=== PATIENT | female | born 1990 | race Caucasian/White ===

== ENCOUNTER 2017-06-09 01:31 | Emergency (ER) | payer SELFPAY ==
--- NOTE | 2017-06-09 01:38 | Emergency Department Record ---
History of Present Illness - General Chief Complaint: Overdose Stated Complaint: OVERDOSE Time Seen by Provider: 06/09/17 01:32 Source: Family, Police Mode of Arrival: Wheelchair Limitations: Altered mental status - History of Present Illness Initial Comments: 27 yo female presents to ED following intentional overdose per family members. Family reports a history of depression, has been upset over the recent of her father. Patient ingested an unknown quantity of prescriptions medications, possible Xanax. Complaint: Intentional overdose Onset/Timin -: Minutes(s) - [place]hele Coma Scale Eye Response: (3) Open to voice Motor Response: (5) Localizes to pain Verbal Response: (4) Confused conversation [place] Total: 12 - Detail Intent: Suicide attempt Context: Intentional Overdose: Recent loss Treatments Prior to Arrival: None - Related Data Previous Rx's Medication Instructions Recorded Albuterol Sulfate [Proair Hfa] 2 puff IH QID PRN #1 inhaler 01/24/16 Benzonatate [Tessalon] 1 cap PO Q8H PRN #15 cap 01/24/16 Doxycycline Hyclate [Doxycycline] 100 mg PO BID #14 cap 01/24/16 Allergies Allergy/AdvReac Type Severity Reaction Status Date / Time No Known Drug Allergies Allergy Verified 01/24/16 12:12 Review of Systems ROS unobtainable: Due to mental status Past Medical History - SOCIAL HISTORY Smoking Status: Light tobacco smoker (<10/day) Drug Use: None - RESPIRATORY Hx Respiratory Disorders: No - CARDIOVASCULAR Hx Cardio Disorders: No - NEURO Hx Neuro Disorders: No - GI Hx GI Disorders: No - Hx Genitourinary Disorders: No - ENDOCRINE Hx Endocrine Disorders: No - MUSCULOSKELETAL Hx Musculoskeletal Disorders: Yes - PSYCH Hx Psych Problems: Yes Hx Anxiety: Yes Comment:: bipolar - HEMATOLOGY/ONCOLOGY Hx Hematology/Oncology Disorders: No Family Medical History Hx Alcohol Use: Father, Brother/Sister, Grandparents Hx Anxiety: Father, Mother, Brother/Sister, Grandparents Hx Cancer: Grandparents Hx Depression: Mother, Brother/Sister, Grandparents Hx Heart Disease: Grandparents Hx HTN: Grandparents Hx Kidney Disease: Grandparents Hx Stroke: Mother Physical Exam - General General Appearance: Other (Patient is initially unarousable, then becomes agitated on examination) Limitations: Altered mental status - Head Head exam: Atraumatic, Normocephalic, Normal inspection Head exam detail: negative: Abrasion, Contusion, Pacheco's sign, General tenderness, Hematoma, Laceration - Eye Eye exam: Normal appearance. negative: Conjunctival injection, Periorbital swelling, Periorbital tenderness, Scleral icterus - ENT Ear exam: negative: Auricular hematoma, Auricular trauma Nasal Exam: negative: Active bleeding, Discharge, Foreign body Mouth exam: negative: Drooling, Laceration, Tongue elevation - Neck Neck exam: Normal inspection. negative: Meningismus, Tenderness - Respiratory Respiratory exam: Normal lung sounds bilaterally. negative: Rales, Respiratory distress, Rhonchi, Stridor - Cardiovascular Cardiovascular Exam: Normal rhythm, Normal heart sounds, Tachycardia - GI/Abdominal GI/Abdominal exam: Soft. negative: Rebound, Rigid, Tenderness - Rectal Rectal exam: Deferred - exam: Deferred - Extremities Extremities exam: negative: Pedal edema, Tenderness - Neurological Neurological exam: Altered, Other (Intermittently agitated, altered on examination) - Psychiatric Psychiatric exam: Agitated - Skin Skin exam: Normal color. negative: Abrasion Type of lesion: negative: abrasion Course - Reevaluation(s) Reevaluation #1: 06/09/17 01:39 EKG: Sinus tachycardia 108 Normal axis, normal intervals No acute ST-T wave changes Patient seen and examined, is currently protecting her airway with intermittent agitation, calms when males are out of the room. Will monitor closely for worsening mental status/airway compromise. Reevaluation #2: 06/09/17 02:06 Patient reassessed, she is talking quietly with SO, maintaining her airway at this time. Awaiting laboratory results to initiate transfer. Reevaluation #3: 06/09/17 02:24 Labs reviewed, Alcohol 0.142, labs are otherwise grossly unremarkable for an acute process. [facility] 1-call contacted for transfer to SDU. Reevaluation #4: 06/09/17 02:37 Case was discussed with Dr. Pimentel, will accept transfer for admission and medical clearance Medical Decision Making - Lab Data Result diagrams: 06/09/17 01:38 06/09/17 01:38 Disposition Disposition: Transfer Clinical Impression: Intentional drug overdose Qualifiers: Encounter type: initial encounter Qualified Code(s): T50.902A - Poisoning by unspecified drugs, medicaments and biological substances, intentional self-harm , initial encounter Disposition: Acute Care Hospital Transfer Transfer To: [facility] Reason For Transfer: SDU for medical clearance Accepting Physician: Loren Time Discussed w/Accepting Physician: :38 Condition: (3) Guarded Forms: Patient Portal Access Time of Disposition: :38 Quality - Quality Measures Quality Measures: N/A - Blood Pressure Screening Does Patient Have Any of the Following: No Blood Pressure Classification: Pre-Hypertensive BP Reading Systolic Measurement: 134 Diastolic Measurement: 84 Screening for High Blood Pressure: < Pre-Hypertensive BP, F/U Documented > [ G8950] Pre-Hypertensive Follow-up Interventions: Referral to alternative/primary care provider.
[2017-06-09 01:43] LABS: BASO % 0.7 % (0-6); EOS % 0.8 % (0-6); GRAN % 56.4 % (47-80); HEMATOCRIT 42.9 % (35.0-47.0); HEMOGLOBIN 14.1 gm/dl (11.6-16.0); LYMPH % 34.1 % (16-45); MEAN CELL VOLUME 90.5 fl (81-97); MEAN CORPUSCULAR HEMOGLOBIN 29.7 pg (27-33); MEAN CORPUSCULAR HGB CONC 32.9 g/dl (32-36); MEAN PLATELET VOLUME 9.7 fl (7.4-10.4); PLATELET COUNT 279 K/uL (130-400); RED BLOOD COUNT 4.74 M/uL (3.80-5.40); RED CELL DISTRIBUTION WIDTH 14.5 % (11.5-14.5); WHITE BLOOD COUNT W/O DIFF 9.2 K/uL (4.2-12.2)
[2017-06-09] MEDS: 0.9 % SODIUM CHLORIDE 1000ML 1,000 ML IV SCH ×2 (01:46→03:31)
[2017-06-09 02:22] LABS: ALBUMIN 4.5 g/dL (4.0-5.0); ALKALINE PHOSPHATASE 76 U/L (35-104); ALT/SGPT 20 U/L (<33); AST/SGOT 27 U/L (10.0-35.0)
[2017-06-09 02:23] LABS: ACETAMINOPHEN < 5.0 ug/mL (10.0-30.0); ALCOHOL 0.142 g/dL (0-0.010); BLOOD UREA NITROGEN 8 mg/dL (6-20); CREATININE 0.7 mg/dL (0.5-0.9); EST GLOMERULAR FILTRATION RATE > 60 mL/min; GLUCOSE,RANDOM 111 mg/dL (74-109); SALICYLATE < 0.3 mg/dL (2.8-20)
[2017-06-09 02:24] LABS: ALB/GLOB RATIO 1.7 (1.1-1.8); TOTAL PROTEIN 7.1 g/dL (6.6-8.7)
[2017-06-09 02:53] LABS: AMPHETAMINE SCREEN URINE NOT DETECTED; BARBITURATE SCREEN URINE NOT DETECTED; BENZODIAZEPINE SCREEN URINE NOT DETECTED; COCAINE SCREEN URINE NOT DETECTED; METHADONE SCREEN URINE NOT DETECTED; METHAMPHETAMINE SCREEN NOT DETECTED; OPIATE SCREEN URINE NOT DETECTED; OXYCODONE SCREEN URINE NOT DETECTED; PHENCYCLIDINE SCREEN URINE NOT DETECTED; PROPOXYPHENE SCREEN URINE NOT DETECTED; THC SCREEN URINE NOT DETECTED; TRICYCLIC ANTIDEPRESSANT SCRN NOT DETECTED
[2017-06-09] MEDS ORDERED: ONDANSETRON HCL IV 4 MG/2 ML VIAL IVP ONE (03:35)
== END 2017-06-09 04:04 | disposition short-term general hospital (02) ==
LOC: ER 01:31
DX: T50.902A Poisoning by unspecified drugs, medicaments and biological substances, intentional self-harm, initial encounter (principal); F17.210 Nicotine dependence, cigarettes, uncomplicated; F31.9 Bipolar disorder, unspecified
CPT/HCPCS: 99285 ×2; 96374; 83986; 85025; 80053; 80305; 93005; 93010; G0480 ×3; J2405; 80320; 80329; J7030

== ENCOUNTER 2017-07-15 01:45 | Emergency (ER) | payer MEDICAID ==
[2017-07-15] MEDS ORDERED: LORAZEPAM 2 MG/ML VIAL IV ONE (02:32)
[2017-07-15 02:35] LABS: BASO % 0.6 % (0-6); EOS % 0.7 % (0-6); GRAN % 47.9 % (47-80); HEMATOCRIT 44.2 % (35.0-47.0); HEMOGLOBIN 14.8 gm/dl (11.6-16.0); LYMPH % 42.5 % (16-45); MEAN CELL VOLUME 90.6 fl (81-97); MEAN CORPUSCULAR HEMOGLOBIN 30.3 pg (27-33); MEAN CORPUSCULAR HGB CONC 33.5 g/dl (32-36); MEAN PLATELET VOLUME 10.8 fl (7.4-10.4); MONO % 8.3 % (0-9); PLATELET COUNT 246 K/uL (130-400); RED BLOOD COUNT 4.88 M/uL (3.80-5.40); RED CELL DISTRIBUTION WIDTH 14.3 % (11.5-14.5); WHITE BLOOD COUNT W/O DIFF 9.9 K/uL (4.2-12.2)
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
[2017-07-15 02:48] LABS: BLOOD UREA NITROGEN 4 mg/dL (6-20); CREATININE 0.6 mg/dL (0.5-0.9); EST GLOMERULAR FILTRATION RATE > 60 mL/min; TOTAL PROTEIN 7.1 g/dL (6.6-8.7)
[2017-07-15 02:50] LABS: GLUCOSE,RANDOM 93 mg/dL (74-109)
[2017-07-15 02:53] LABS: ALB/GLOB RATIO 1.6 (1.1-1.8); ALBUMIN 4.4 g/dL (4.0-5.0); ALKALINE PHOSPHATASE 63 U/L (35-104); ALT/SGPT 58 U/L (<33); AST/SGOT 52 U/L (10.0-35.0)
[2017-07-15 02:55] LABS: ALCOHOL 0.257 g/dL (0-0.010)
[2017-07-15 03:04] LABS: THYROID STIMULATING HORMONE 2.69 uIU/mL (0.270-4.20)
[2017-07-15 03:05] LABS: ACETAMINOPHEN < 5.0 ug/mL (10.0-30.0)
[2017-07-15] MEDS ORDERED: SOD CHLOR 0.9% WITH KCL 40MEQ 40 MEQ/1,000 ML IV.SOLN IV ONE (04:07)
--- NOTE | 2017-07-15 07:37 | Emergency Department Record ---
History of Present Illness - General Chief Complaint: Suicide attempt Stated Complaint: SUICIDAL/INTOX Time Seen by Provider: 07/15/17 01:50 Source: Patient Mode of Arrival: EMS Travel/Exposure to [facility] [place] Within 21 Days of Symptoms: No - History of Present Illness Onset/Timin -: Minutes(s) Associated Psychiatric Symptoms: Depression Worsens With: Alcohol Treatments Prior to Arrival: None If Self Harm: Has acted on plan - Michele Coma Scale Eye Response: (4) Open spontaneously - Related Data Previous Rx's Medication Instructions Recorded Albuterol Sulfate [Proair Hfa] 2 puff IH QID PRN #1 inhaler 01/24/16 Benzonatate [Tessalon] 1 cap PO Q8H PRN #15 cap 01/24/16 Doxycycline Hyclate [Doxycycline] 100 mg PO BID #14 cap 01/24/16 Allergies Allergy/AdvReac Type Severity Reaction Status Date / Time No Known Drug Allergies Allergy Verified 01/24/16 12:12 Past Medical History - SOCIAL HISTORY Smoking Status: Light tobacco smoker (<10/day) Alcohol Use: Occasional Drug Use: None - RESPIRATORY Hx Respiratory Disorders: No - CARDIOVASCULAR Hx Cardio Disorders: No - NEURO Hx Neuro Disorders: No - GI Hx GI Disorders: No - Hx Genitourinary Disorders: No - ENDOCRINE Hx Endocrine Disorders: No - MUSCULOSKELETAL Hx Musculoskeletal Disorders: Yes - PSYCH Hx Psych Problems: Yes Hx Anxiety: Yes Comment:: bipolar - HEMATOLOGY/ONCOLOGY Hx Hematology/Oncology Disorders: No Family Medical History Any Significant Family History?: Yes Hx Alcohol Use: Father, Brother/Sister, Grandparents Hx Anxiety: Father, Mother, Brother/Sister, Grandparents Hx Cancer: Grandparents Hx Depression: Mother, Brother/Sister, Grandparents Hx Heart Disease: Grandparents Hx HTN: Grandparents Hx Kidney Disease: Grandparents Hx Stroke: Mother Physical Exam - General Limitations: No limitations Course Vital Signs 07/15/17 07/15/17 07/15/17 01:55 02:01 07:05 Temperature 98.1 F Pulse Rate [ 88 95 H Hydro Operator ] Respiratory 20 14 Rate Blood Pressure 107/72 102/70 [Right Arm] Pulse Ox 100 97 - Reevaluation(s) Reevaluation #1: 07/15/17 07:34 In to evaluate the patient following provider turnover, right wrist restraint removed. Patient then removed her left wrist restraint and is yelling that she is "getting the fuck out of here". Patient continues to yell obscenities at staff members, wants a phone to call her mother. I offered to call her mother and let her know that she was in the ED, patient declined. Restraints replaced to the wrists until psychiatric evaluation can take place. Reevaluation #2: 07/15/17 08:20 Zyprexa has been administered for increased agitation, awaiting patient's mother for arrival. Reevaluation #3: 07/15/17 08:44 Patient now sleeping, lower extremity restraints will be removed. Patient's SO and mother are currently at the bedside. Reevaluation #4: 07/15/17 10:56 Patient is resting comfortably with family at this time, will attempt to obtain urine to send to [facility] to complete medical clearance. Reevaluation #5: 07/15/17 11:30 UDS/UA reviewed and are unremarkable except for Benzodiazipines. Will initiate psychiatric clearance through [facility]. 07/15/17 15:08 Patient has been accepted by [facility] and is ready for transport at this time. Medical Decision Making - Lab Data Result diagrams: 07/15/17 01:00 07/15/17 01:00 Lab Results 07/15/17 07/15/17 07/15/17 Range/Units 01:00 01:00 01:00 WBC 9.9 (4.2-12.2) K/uL RBC 4.88 (3.80-5.40) M/uL Hgb 14.8 (11.6-16.0) gm/dl Hct 44.2 (35.0-47.0) % MCV 90.6 (81-97) fl MCH 30.3 (27-33) pg MCHC 33.5 (32-36) g/dl RDW 14.3 (11.5-14.5) % Plt Count 246 (130-400) K/uL MPV 10.8 H (7.4-10.4) fl Gran % 47.9 (47-80) % Lymphocytes % 42.5 (16-45) % Monocytes % 8.3 (0-9) % Eosinophils % 0.7 (0-6) % Basophils % 0.6 (0-6) % Sodium 146 H (136-145) mmol/L Potassium 3.0 L (3.4-4.5) mmol/L Chloride 103 (98-107) mmol/L Carbon Dioxide 29.0 (22-29) mmol/L Anion Gap 14.0 (7-16) BUN 4 L (6-20) mg/dL Creatinine 0.6 (0.5-0.9) mg/dL Estimated GFR > 60 mL/min Random Glucose 93 (74-109) mg/dL Calcium 9.1 (8.6-10.0) mg/dL Total Bilirubin 0.30 (0.2-1.0) mg/dL AST 52 H (10.0-35.0) U/L ALT 58 H (<33) U/L Alkaline Phosphatase 63 (35-104) U/L Total Protein 7.1 (6.6-8.7) g/dL Albumin 4.4 (4.0-5.0) g/dL Globulin 2.7 (1.4-4.8) gm/dL Albumin/Globulin Ratio 1.6 (1.1-1.8) TSH 2.69 (0.270-4.20) uIU/mL Acetaminophen < 5.0 L (10.0-30.0) ug/mL Ethyl Alcohol 0.257 H (0-0.010) g/dL Disposition Disposition: Transfer Clinical Impression: Hypokalemia Suicide attempt by hanging Qualifiers: Encounter type: initial encounter Qualified Code(s): T71.162A - Asphyxiation due to hanging, intentional self-harm, initial encounter Disposition: Psychiatric Hospital Transfer To: [facility] Reason For Transfer: Psychiatric evaluation Accepting Physician: Allyn Time Discussed w/Accepting Physician: 15:09 Condition: (2) Stable Forms: Patient Portal Access Time of Disposition: 15:09 Quality - Quality Measures Quality Measures: N/A - Blood Pressure Screening Does Patient Have Any of the Following: No Blood Pressure Classification: Normal BP Reading Systolic Measurement: 103 Diastolic Measurement: 70 Screening for High Blood Pressure: < Normal BP, F/U Not Required > [G8783]
[2017-07-15] MEDS ORDERED: OLANZAPINE 10 MG VIAL IM ONE (07:55)
[2017-07-15 11:24] LABS: URINE APPEARANCE SL CLOUDY; URINE BILIRUBIN NEGATIVE (NEGATIVE); URINE BLOOD NEGATIVE (NEGATIVE); URINE COLOR ORANGE; URINE GLUCOSE (UA) NEGATIVE (NEGATIVE); URINE KETONE NEGATIVE (NEGATIVE); URINE LEUKOCYTE ESTERASE NEGATIVE (NEGATIVE); URINE NITRITE NEGATIVE (NEGATIVE); URINE PROTEIN NEGATIVE (NEGATIVE); URINE UROBILINOGEN 0.2 E.U./dL (0.20 - 1.00)
[2017-07-15 11:25] LABS: HCG,QUALITATIVE URINE NEGATIVE (NEGATIVE)
[2017-07-15 11:29] LABS: AMPHETAMINE SCREEN URINE NOT DETECTED; BARBITURATE SCREEN URINE NOT DETECTED; BENZODIAZEPINE SCREEN URINE DETECTED; COCAINE SCREEN URINE NOT DETECTED; METHADONE SCREEN URINE NOT DETECTED; METHAMPHETAMINE SCREEN NOT DETECTED; OPIATE SCREEN URINE NOT DETECTED; OXYCODONE SCREEN URINE NOT DETECTED; PHENCYCLIDINE SCREEN URINE NOT DETECTED; PROPOXYPHENE SCREEN URINE NOT DETECTED; THC SCREEN URINE NOT DETECTED; TRICYCLIC ANTIDEPRESSANT SCRN NOT DETECTED
--- NOTE | 2017-07-16 08:09 | RADIOLOGY REPORT ---
EXAM: CERVICAL SPINE, THREE VIEWS HISTORY: TRAUMA. UPPER NECK PAIN. TECHNIQUE: Three views of the cervical spine were obtained. Comparison: 11/28/13. FINDINGS: No precervical soft tissue swelling. Please note the C6 through T1 are poorly assessed on lateral view. I would recommend further assessment with dedicated CT of the cervical spine. Fracture not excluded. No discreet abnormality is seen on frontal view. The odontoid view is also suboptimal. IMPRESSION: POOR ASSESSMENT OF THE C6 THROUGH T1 LEVELS ABOVE. RECOMMEND FURTHER ASSESSMENT WITH DEDICATED CT OF THE CERVICAL SPINE. JOB NUMBER: [id number] [facility]
== END 2017-07-15 16:00 ==
LOC: ER 01:45
DX: T14.91XA Suicide attempt, initial encounter (principal); M54.2 Cervicalgia; E87.6 Hypokalemia; F10.129 Alcohol abuse with intoxication, unspecified; X83.8XXA Intentional self-harm by other specified means, initial encounter; Y92.003 Bedroom of unspecified non-institutional (private) residence as the place of occurrence of the external cause; F17.210 Nicotine dependence, cigarettes, uncomplicated; Y90.8 Blood alcohol level of 240 mg/100 ml or more; F31.9 Bipolar disorder, unspecified
CPT/HCPCS: 99285 ×2; 96372; 96365; 96366; 96375; 85025; 80053; 81003; 84443; 81025; 80305; 72040; G0480 ×2; J2060; 80320; 80329

== ENCOUNTER 2018-09-22 11:41 | Emergency (ER) | payer MEDICAID | END 2018-09-22 11:52 | disposition home or self-care (01) | LOC: ER 11:41 | DX: Z53.21 Procedure and treatment not carried out due to patient leaving prior to being seen by health care provider (principal) ==

== ENCOUNTER 2018-10-06 12:19 | Emergency (ER) | payer MEDICAID ==
[2018-10-06] MEDS ORDERED: PROPARACAINE HCL OPTH 15ML BTL OPTH ONE (12:33)
--- NOTE | 2018-10-06 12:51 | Emergency Department Record ---
History of Present Illness - General Chief complaint: Eye Problem Stated complaint: RT EYE SWOLLEN Time Seen by Provider: 10/06/18 12:20 Source: Patient Mode of Arrival: Ambulatory Limitations: No limitations - History of Present Illness Initial comments: The patient is here due to R eye pain. She wears contacts and has been sleeping in them. A week ago she took them out and her R eye became painful. She has had persistent pain in the R eye since. The L eye was hurting a little but that went away. The patient has had mildly decreased vision out of the R eye but she believes it is mainly due to pain. chief complaint: Eye pain Onset/Timin -: Week(s) Location: Right eye Eye Symptoms: Decreased vision, Foreign body sensation Context: Contact lens use Associated Symptoms: None Treatments Prior to Arrival: None - Related Data Visual acuity (L) = 20/: 20 Visual acuity (R) = 20/: 40 With correction: Yes Hx Tetanus Toxoid Vaccination: No Previous Rx's Medication Instructions Recorded Moxifloxacin HCl [Moxifloxacin] 3 ml OP QID #1 drops 10/06/18 Allergies Allergy/AdvReac Type Severity Reaction Status Date / Time No Known Drug Allergies Allergy Unverified 07/09/18 10:46 Travel Screening - Travel/Exposure Within Last 30 Days Have you traveled within the last 30 days?: No - Travel/Exposure Within Last Year Have you traveled outside the [place] in the last year?: No - Additonal Travel Details Have you been exposed to anyone with a communicable illness?: No - Travel Symptoms Symptom Screening: None Review of Systems Constitutional: Denies: Chills, Fever Eyes: Denies: Eye discharge ENT: Denies: Congestion Respiratory: Denies: Cough, Dyspnea Past Medical History - SOCIAL HISTORY Smoking Status: Light tobacco smoker (<10/day) Drug Use: None - RESPIRATORY Hx Respiratory Disorders: No - CARDIOVASCULAR Hx Cardio Disorders: No - NEURO Hx Neuro Disorders: No - GI Hx GI Disorders: No - Hx Genitourinary Disorders: No - ENDOCRINE Hx Endocrine Disorders: No - MUSCULOSKELETAL Hx Musculoskeletal Disorders: Yes - PSYCH Hx Psych Problems: Yes Hx Anxiety: Yes Comment:: bipolar - HEMATOLOGY/ONCOLOGY Hx Hematology/Oncology Disorders: No Family Medical History Any Significant Family History?: No Hx Alcohol Use: Father, Brother/Sister, Grandparents Hx Anxiety: Father, Mother, Brother/Sister, Grandparents Hx Cancer: Grandparents Hx Depression: Mother, Brother/Sister, Grandparents Hx Heart Disease: Grandparents Hx HTN: Grandparents Hx Kidney Disease: Grandparents Hx Stroke: Mother Physical Exam - General General Appearance: Alert, Oriented x3, Cooperative, No acute distress - Head Head exam: Atraumatic, Normocephalic - Eye Eye exam: PERRL (There is pain with direct light examination of the R eye but no pain in the R eye while flashing the light in the L eye. Placing alciane in the R eye resolved the patient's pain 100%.), Conjunctival injection (mild R eye.), EOMI, Other (There is no FB under the R upper eyelid on lid eversion. On SLE there is no obvious corneal defect and no cell and flare. On flourescein staining there is mild diffuse SPK to the R cornea but no ulcer, infiltrate or dendrite.). negative: Normal appearance, Periorbital swelling, Periorbital tenderness, Scleral icterus Visual acuity (L) = 20/: 20 Visual acuity (R) = 20/: 40 With correction: Yes Course Vital Signs 10/06/18 12:23 Temperature 97.6 F Pulse Rate 106 H Respiratory 16 Rate Blood Pressure 119/66 Pulse Ox 100 - Reevaluation(s) Reevaluation #1: I explained to the patient she will need to keep her contacts out of her eyes for at least a week. She is to take the Moxifloxacin drops as directed and is to see her eye doctor tomorrow for recheck. 10/06/18 12:55 Disposition Disposition: Discharge Clinical Impression: Corneal abrasion, right Qualifiers: Encounter type: initial encounter Qualified Code(s): S05.01XA - Injury of conjunctiva and corneal abrasion without foreign body, right eye, initial encounter Disposition: Home, Self-Care Condition: (2) Stable Instructions: Corneal Abrasion (ED) Additional Instructions: Please keep contacts out of the eye until given the OK by your eye doctor. Please use the Moxifloxacin as directed and please see your eye doctor tomorrow. Return to the ER for any worsening symptoms. Prescriptions: Moxifloxacin HCl [Moxifloxacin] 3 ml OP QID #1 drops Forms: Patient Portal Access Time of Disposition: 12:51 Quality - Quality Measures Quality Measures: N/A - Blood Pressure Screening View Details: Yes Does Patient Have Any of the Following: No Blood Pressure Classification: Normal BP Reading Systolic Measurement: 119 Diastolic Measurement: 66 Screening for High Blood Pressure: < Normal BP, F/U Not Required > [G8783]
== END 2018-10-06 13:00 | disposition home or self-care (01) ==
LOC: ER 12:19
DX: H18.821 Corneal disorder due to contact lens, right eye (principal); F17.210 Nicotine dependence, cigarettes, uncomplicated
CPT/HCPCS: 99283

== ENCOUNTER 2018-10-08 19:05 | Emergency (ER) | payer MEDICAID ==
--- NOTE | 2018-10-08 19:21 | Emergency Department Record ---
History of Present Illness - General Stated Complaint: OD Time Seen by Provider: 10/08/18 19:12 Source: Patient, EMS Mode of Arrival: EMS - History of Present Illness Initial comments: 28 yo female presents to ED for evaluation of alteration in mental status. Patient's family members called EMS for evaluation of difficulty in breathing, decreased level of consciousness. Patient was given Narcan 1 mg IV prior to arrival with improvement in her mental status. Upon examination, patient is yelling at staff, police, EMS personal, and not allowing staff to speak with her or examine her. -: Unknown - Michele Coma Scale Eye Response: (4) Open spontaneously Motor Response: (6) Obeys commands Verbal Response: (5) Oriented Roy Total: 15 - Related Data Previous Rx's Medication Instructions Recorded Moxifloxacin HCl [Moxifloxacin] 3 ml OP QID #1 drops 10/06/18 Allergies Allergy/AdvReac Type Severity Reaction Status Date / Time No Known Drug Allergies Allergy Unverified 07/09/18 10:46 Review of Systems ROS unobtainable: Other (Due to patient's noncompliacne with examination) Past Medical History - SOCIAL HISTORY Smoking Status: Light tobacco smoker (<10/day) Drug Use: None - RESPIRATORY Hx Respiratory Disorders: No - CARDIOVASCULAR Hx Cardio Disorders: No - NEURO Hx Neuro Disorders: No - GI Hx GI Disorders: No - Hx Genitourinary Disorders: No - ENDOCRINE Hx Endocrine Disorders: No - MUSCULOSKELETAL Hx Musculoskeletal Disorders: Yes - PSYCH Hx Psych Problems: Yes Hx Anxiety: Yes Comment:: bipolar - HEMATOLOGY/ONCOLOGY Hx Hematology/Oncology Disorders: No Family Medical History Hx Alcohol Use: Father, Brother/Sister, Grandparents Hx Anxiety: Father, Mother, Brother/Sister, Grandparents Hx Cancer: Grandparents Hx Depression: Mother, Brother/Sister, Grandparents Hx Heart Disease: Grandparents Hx HTN: Grandparents Hx Kidney Disease: Grandparents Hx Stroke: Mother Physical Exam - General General Appearance: Alert, Oriented x3, Moderate distress, Other (Argumentatice on examination, patient has removed her own IV, yelling at staff and police on examination. Patient is alert and oriented on exmaination, will not allow examination or answer questions.) - Head Head exam: Atraumatic, Normocephalic, Normal inspection Head exam detail: negative: Abrasion, Contusion, Pacheco's sign, General tenderness, Hematoma, Laceration - Eye Eye exam: Normal appearance. negative: Conjunctival injection, Periorbital swelling, Periorbital tenderness, Scleral icterus - ENT Ear exam: negative: Auricular hematoma, Auricular trauma Nasal Exam: negative: Active bleeding, Discharge, Dried blood, Foreign body Mouth exam: negative: Drooling, Laceration, Muffled voice, Tongue elevation - Neck Neck exam: Normal inspection. negative: Meningismus, Tenderness - Rectal Rectal exam: Deferred - exam: Deferred - Extremities Extremities exam: Normal inspection. negative: Pedal edema, Tenderness - Neurological Neurological exam: Alert, Normal gait, Oriented X3 - Psychiatric Psychiatric exam: Other (Argumentative on examination, will not allow me to answer questions on examination.) - Skin Skin exam: Normal color. negative: Abrasion Type of lesion: negative: abrasion Course - Reevaluation(s) Reevaluation #1: 10/08/18 19:21 Patient was seen, attempted to examined the patient, patient is non-cooperative with examination as during EMS report, EMS reported administering Narcan 1 mg IV for altered level of consciousness. Patient then became very agitated, removed her own IV, and is refusing to be examined while yelling at Police and staff members. I attempted numerous times to answer the patient's questions, patient refuses to remain in the room despite police attempts to contain the patient peacefully for examination. Patient is continues to leave the room, yelling at staff members, EMS providers, and police. Patient has no ataxia noted, vehemently denies attempt at self harm. Patient's SO and children are present during our interaction, will not allow me to answer any questions for her regarding why Narcan was administered by EMS providers. Based on my limited examination, the patient is alert, oriented, is unwilling to cooperate with more thorough examination. Patient appears to have the capacity to make rational decisions based on my examination. Patients family was present for the duration of our discussion as well. Patient was allowed to leave AMA under her own power with her SO and children. Disposition Disposition: Other (AMA) Clinical Impression: Altered mental status Qualifiers: Altered mental status type: transient alteration of awareness Qualified Code(s): R40.4 - Transient alteration of awareness Disposition: Against Medical Advice Condition: (2) Stable Time of Disposition: 19:26 Quality - Quality Measures Quality Measures: N/A - Blood Pressure Screening Does Patient Have Any of the Following: No Systolic Measurement: ~ Screening for High Blood Pressure: BP or F/U Not Documented, Reason Given [[id number]] Reason for No BP or F/U: Refuses to Participate
== END 2018-10-08 19:50 | disposition left against medical advice (07) ==
LOC: ER 19:05
DX: R40.4 Transient alteration of awareness (principal); R06.00 Dyspnea, unspecified; Z91.19 Patient's noncompliance with other medical treatment and regimen
CPT/HCPCS: 99283

== ENCOUNTER 2019-05-22 22:40 | Emergency (ER) | payer MEDICAID | END 2019-05-22 23:07 | disposition left against medical advice (07) | LOC: ER 22:40 | DX: Z53.20 Procedure and treatment not carried out because of patient's decision for unspecified reasons (principal) ==